=== PATIENT | male | born 1930 | race Caucasian/White ===

== ENCOUNTER 2016-11-16 10:01 | Observation (INO) | payer MEDICARE, OTHER ==
[~2016-11-16] VITALS: Ht 175.3 cm; Wt 71.2 kg
[~2016-11-16 10:01] MED LIST: ALEVE220 MG PO; BAYER CHEWABLE81 MG PO; COLACE100 MG PO; COZAAR100 MG PO; K-DUR20 MEQ PO; LEVAQUIN500 MG PO; ONDANSETRON4 MG/2 M3 PO; PACERONE200 MG PO; PRAVACHOL40 MG PO; PRILOSEC20 MG PO; PROVENTIL/2.5 MG/3 M INH; SENNA8.6 MG PO; ULTRAM50 MG PO
[2016-11-16 10:51] LABS: BASOPHILS 0.5 % (0.0-2.0); HEMATOCRIT 39.4 % (42.0-54.0); HEMOGLOBIN 12.4 g/dL (13.5-17.5); IMMATURE GRANULOCYTES 0.3 % (0-5); LYMPHOCYTES 14.9 % (15-50); MCH 27.1 pg (26.0-34.0); MCHC 31.5 g/dL (31.0-37.0); MEAN PLATELET VOLUME 11.1 fL (7.4-10.4); MONOCYTES 8.4 % (2-11); NEUTROPHILS 70.9 % (40-80); PLATELET COUNT 135 10x3/uL (130-400); RBC 4.58 10x6/uL (4.20-6.10); RDW 14.3 % (11.5-14.5); WBC 7.7 10x3/uL (4.8-10.8)
[2016-11-16 11:12] LABS: ALBUMIN 3.6 g/dL (3.4-5.0); ALKALINE PHOSPHATASE 90 U/L (46-116); ALT (SGPT) 18 U/L (10-68); AMYLASE - SERUM 105 U/L (25-115); BILIRUBIN - TOTAL 0.41 mg/dL (0.2-1.3); CALC OSMOLALITY 301 mosm/kg (275-300); CALCIUM 8.8 mg/dL (8.5-10.1); CARBON DIOXIDE 24.4 mmol/L (21.0-32.0); CHLORIDE - SERUM 110 mmol/L (98-107); CREATINE KINASE 61 UL (21-232); CREATININE - SERUM 1.9 mg/dL (0.6-1.3); GLUCOSE 129 mg/dL (74-106); LIPASE 354 U/L (73-393); POTASSIUM - SERUM 4.2 mmol/L (3.5-5.1); SODIUM 146 mmol/L (136-145); UREA NITROGEN 39 mg/dL (7-18); eGFR NON AFRICAN AMERICAN 36 mL/min (90-120)
[2016-11-16 11:13] LABS: PROTEIN - SERUM 3.8 g/dL (6.4-8.2); TROPONIN-I < 0.017 ng/mL (0.000-0.060)
[2016-11-16 11:57] LABS: CKMB 1.3 U/L (0.0-3.6)
--- NOTE | 2016-11-16 14:01 | NUR ---
TRANSFER FROM ER BY STRETCHER. OREINTED TO ROOM. CALL LIGHT IN REACH. WILL CONT. PLAN OF CARE.
[2016-11-16] MEDS ORDERED: ARICEPT10 MG PO (14:33)
[2016-11-16] MEDS ORDERED: NAPROXEN SODIU220 M1 PO (14:35)
[2016-11-16 14:47] VITALS: BP 182/84; BMI 23.2
[2016-11-16 16:00] VITALS: BP 186/74
[2016-11-16 16:55] LABS: CREATINE KINASE 65 UL (21-232)
[2016-11-16 16:58] LABS: TROPONIN-I < 0.017 ng/mL (0.000-0.060)
--- NOTE | 2016-11-16 19:38 | NUR ---
RESUMED CARE OF PT, LYING IN BED RESPIRATIONS EVEN AND UNLABORED ON ROOM AIR. PLAN OF CARE DISCUSSED. 76 SR WITH PACS. LEFT HAND SALINE LOCKED. BED ALARM PLACED. CALL LIGHT IN REACH. WILL CONTINUE TO MONITOR. SEE NURSE ASSESSMENT.
[2016-11-16 20:00] VITALS: BP 126/50
[2016-11-17] VITALS: BP 137/87
[2016-11-17 00:03] LABS: CKMB 0.9 U/L (0.0-3.6); CREATINE KINASE 53 UL (21-232); TROPONIN-I < 0.017 ng/mL (0.000-0.060)
[2016-11-17 04:00] VITALS: BP 107/83
[2016-11-17 05:30] LABS: BASOPHILS 0.4 % (0.0-2.0); EOSINOPHILS 5.1 % (0-7); HEMATOCRIT 36.4 % (42.0-54.0); HEMOGLOBIN 11.5 g/dL (13.5-17.5); IMMATURE GRANULOCYTES 0.2 % (0-5); LYMPHOCYTES 15.6 % (15-50); MCHC 31.6 g/dL (31.0-37.0); MCV 85.4 fL (80.0-100.0); MONOCYTES 8.4 % (2-11); NEUTROPHILS 70.3 % (40-80); PLATELET COUNT 139 10x3/uL (130-400); RBC 4.26 10x6/uL (4.20-6.10); RDW 14.3 % (11.5-14.5)
[2016-11-17 05:33] LABS: WBC 10.5 10x3/uL (4.8-10.8)
--- NOTE | 2016-11-17 06:28 | NUR ---
NO CHANGES FROM PREVIOUS ASSESSMENT, CALL LIGHT IN REACH. REMAINS NPO, AWAITING CARDIOLOGY. FUNMI ALARM ON.
[2016-11-17 06:38] LABS: ANION GAP 11.8 mmol/L (8-16); CALCIUM 8.7 mg/dL (8.5-10.1); CARBON DIOXIDE 26.1 mmol/L (21.0-32.0); CREATININE - SERUM 1.5 mg/dL (0.6-1.3)
[2016-11-17 06:39] LABS: POTASSIUM - SERUM 4.9 mmol/L (3.5-5.1)
[2016-11-17 08:43] VITALS: BP 179/65
[2016-11-17 11:07] LABS: APPEARANCE CLEAR (CLEAR); BILIRUBIN NEGATIVE (NEGATIVE); COLOR YELLOW (YELLOW); GLUCOSE NEGATIVE (NEGATIVE); KETONE NEGATIVE (NEGATIVE); LEUKOCYTE ESTERASE NEGATIVE (NEGATIVE); NITRITE NEGATIVE (NEGATIVE); PROTEIN NEGATIVE (NEGATIVE); UROBILINOGEN NORMAL (NORMAL)
[2016-11-17 12:16] VITALS: Ht 175.3 cm; Wt 71.2 kg
--- NOTE | 2016-11-17 12:40 | HP ---
PATIENT: ROMA RAMIREZ MEDICAL RECORD: [id number] ACCOUNT: [id number] LOCATION:[facility].2119 : [birth year] ADMISSION DATE: 11/16/16 HISTORY AND PHYSICAL EXAMINATION HISTORY OF PRESENT ILLNESS: An 86-year-old gentleman with a history of coronary artery disease. He has a history of dementia. Reports a 2-day history of really epigastric pain, worse with eating more solids and liquids, does report some weight loss, some nausea. Moreover, the family report does stay fairly active without anginal type symptomatology. We are asked to see him concerning his cardiovascular status. PAST MEDICAL HISTORY: 1. ____ history of coronary artery disease. 2. Dementia. 3. Hypertension. 4. Osteoarthritis. 5. Gastroesophageal reflux disease, hiatal hernia. ALLERGIES: None known. MEDICATIONS: Include Aricept 10 every day, losartan 100 every day, pravastatin 40 every day, aspirin 81 every day, Prilosec 20 every day, Zofran 4 q.6 hours p.r.n. SOCIAL HISTORY: Lives here in [place], retired from [employer]. He is nonsmoker. He has difficulty ADLs from a dementia standpoint. Physically, again is quite healthy. PHYSICAL EXAMINATION: GENERAL: Pleasant gentleman in no acute distress. Does recognize me. VITAL SIGNS: Blood pressure 107/83, pulse 65 and regular. HEENT: Normocephalic, atraumatic. NECK: No JVD or bruit. HEART: Regular. LUNGS: [place] clear. ABDOMEN: Soft, nontender. EXTREMITIES: Pulse 2+. No edema. DIAGNOSTIC DATA: ECG without acute change. IMPRESSION: Somewhat atypical pain. Cardiac enzymes negative times 3. ECG without acute changes. We would check echocardiography study. No contraindication to scope and/or discharge from my standpoint. TRANSINT:[id number] Voice Confirmation ID: [id number] DOCUMENT ID: [id number] HISTORY AND PHYSICAL [id number] ROMA RAMIREZ EARNESTINE WILSON MD at 1240 CC: [id number] DICTATION DATE: 11/17/16 0844 SOYBEAN GROWER: 11/17/16 1037 [place] [address]
[2016-11-17 13:14] VITALS: BP 133/53
[2016-11-17 17:16] VITALS: BP 153/55
--- NOTE | 2016-11-17 19:00 | NUR ---
INITIAL ROUNDS MADE. PT SITTING UP IN BED WATCHING TV. DENIES NEEDS OR C/O AT THIS TIME. CALL LIGHT IN REACH. WILL CONT TO MONITOR.
[2016-11-17 20:00] VITALS: BP 145/70; BP 172/89
--- NOTE | 2016-11-18 00:27 | NUR ---
GARDEN CONSULTANT AT BEDSIDE FOR VS. NEEDS ADDRESSED AT THIS TIME. CALL LIGHT IN REACH. WILL CONT TO MONITOR.
[2016-11-18 00:36] VITALS: BP 155/68
[2016-11-18 04:59] VITALS: BP 116/65
[2016-11-18 05:36] LABS: BASOPHILS 0.5 % (0.0-2.0); EOSINOPHILS 7.3 % (0-7); HEMATOCRIT 38.5 % (42.0-54.0); HEMOGLOBIN 11.9 g/dL (13.5-17.5); IMMATURE GRANULOCYTES 0.2 % (0-5); LYMPHOCYTES 19.9 % (15-50); MCH 26.5 pg (26.0-34.0); MCHC 30.9 g/dL (31.0-37.0); MCV 85.7 fL (80.0-100.0); MEAN PLATELET VOLUME 11.9 fL (7.4-10.4); MONOCYTES 9.7 % (2-11); NEUTROPHILS 62.4 % (40-80); PLATELET COUNT 149 10x3/uL (130-400); RBC 4.49 10x6/uL (4.20-6.10); RDW 14.1 % (11.5-14.5); WBC 8.4 10x3/uL (4.8-10.8)
[2016-11-18 05:43] LABS: ANION GAP 9.6 mmol/L (8-16); CALCIUM 8.4 mg/dL (8.5-10.1); CREATININE - SERUM 1.7 mg/dL (0.6-1.3); POTASSIUM - SERUM 4.6 mmol/L (3.5-5.1)
--- NOTE | 2016-11-18 06:34 | NUR ---
SITTING UP IN BED WATCHING TV. NO NEEDS OR C/O VOICED AT THIS TIME. WILL CONT TO MONITOR.
--- NOTE | 2016-11-18 07:16 | NUR ---
ASSESSMENT COMPLETED. TELEMERTY SHOWS SR WITH PACS.O2 AT 2 L/M PER NC. PT HAS A FUNMI ALARM. LEFT HAND SL. CONFUSED AT TIMES
[2016-11-18 08:14] VITALS: BP 158/53
--- NOTE | 2016-11-18 10:34 | NUR ---
UP IN BEDSIDE CHAIR. NO NEEDS VOICED. CALL LIGHT IN REACH
[2016-11-18 11:39] VITALS: BP 145/50
--- NOTE | 2016-11-18 12:42 | NUR ---
UP IN BEDSIDE CHAIR. NO NEEDS VOICED. FAMILY AT BEDSIDE. WILL MONITOR
[2016-11-18] MEDS ORDERED: MIRALAX17 GM PO (14:38)
--- NOTE | 2016-11-18 16:13 | NUR ---
PT DISCHARGED. IV DCD WITH TIP INTACT. INSTRUCTIONS GIVEN TO PT AND FAMILY. TO PRIVATE CAR PER WHEELCHAIR
--- NOTE | 2016-11-18 19:03 | CN ---
PATIENT NAME:ROMA RAMIREZ MEDICAL RECORD: [id number] : [birth year] LOCATION:D. D.2119 ADMIT DATE: 11/16/16 ACCOUNT: [id number] CONSULTING PHYSICIAN: LEIF CURRIE MD REFERRING PHYSICIAN: VIRI HERNANDEZ MD DATE OF CONSULTATION: 11/17/2016 Gastrointestinal Consultation REFERRING PHYSICIAN: Viri Hernandez MD HISTORY OF PRESENT ILLNESS: The patient is an 86-year-old white male with history of underlying dementia as well as prostate cancer, who basically was admitted with some vague epigastric pain, nausea and vomiting. He is subsequently admitted for further evaluation. He is on aspirin and Aleve almost daily. He also has some chronic problems with reflux disease. He also has chronic constipation and takes Dulcolax suppository almost every other day. On chart review, it looks like I saw him in June 2010 for colonoscopy, which revealed mild sigmoid diverticulosis and some internal hemorrhoids and that was about it. At that time, he reported chronic reflux symptoms as well, and has all been on PPIs before. PAST MEDICAL HISTORY: As above. PAST SURGICAL HISTORY: Remarkable for appendectomy and CABG. ALLERGIES: No known drug allergies. HOME MEDICATIONS: Include aspirin, Aleve, Aricept, Colace, Dulcolax suppositories, omeprazole, Cozaar, pravastatin and Zofran p.r.n. Looks like he has been on amiodarone in the past, but does not look like right now. FAMILY HISTORY: Negative for GI disease. SOCIAL HISTORY: The patient is a nonsmoker, nondrinker. REVIEW OF SYSTEMS: Noncontributory other than HPI. PHYSICAL EXAMINATION: GENERAL: Reveals a pleasant elderly white male in no acute distress. VITAL SIGNS: Stable, afebrile. CHEST: Clear. HEART: Regular rate and rhythm. ABDOMEN: Soft, nontender. EXTREMITIES: No edema. LABORATORY DATA: Reveals normal electrolytes, BUN 39, creatinine 1.9. Liver enzymes are normal. White count is normal 7000, hematocrit 39, MCV of 86, platelet count 135,000. Cardiac enzymes are negative. Chest x-ray is negative. IMPRESSION: 1. Acute epigastric pain with nausea and vomiting of unclear etiology, but CONSULT REPORT [id number] ROMA RAMIREZ basically resolved at present. It is completely nontender and was able to eat a regular diet tonight. I suspect is due to NSAID-induced gastropathy versus obstipation versus gallbladder disease. 2. History of chronic constipation. 3. History of mild sigmoid diverticulosis. 4. History coronary artery disease, status post coronary artery bypass graft. 5. Dementia. RECOMMENDATION: 1. Continue his PPI rather it be Protonix 40 mg b.i.d., omeprazole 40 mg daily. 2. Discontinue Naprosyn/Aleve and his aspirin. I probably do this indefinitely. 3. Check KUB, look for obstipation. I probably would start him on some MiraLax daily as well. 4. Ultrasound of the gallbladder. 5. Probably okay for discharge to home in the morning. We will hold off on any endoscopy at this age. She is pain free and much improved. TRANSINT:[id number] Voice Confirmation ID: [id number] DOCUMENT ID: [id number] LEIF CURRIE MD at 1903 CC: VIRI HERNANDEZ MD [id number] DICTATION DATE: 11/17/161935 PUBLIC HEALTH TRAINING ASSISTANT: 11/18/16 0231 DIS IN 11/18/16 [facility] [address] [place] [address]
== END 2016-11-18 16:18 | disposition home or self-care (01) ==
LOC: D.ER 10:01 → OBSVTIME 12:42 → D.M2 12:42
PROVIDERS: Emergency Medicine; Family Medicine; ADMIT Emergency Medicine
DX: R10.13 Epigastric pain (principal); R07.89 Other chest pain; I10 Essential (primary) hypertension; I25.10 Atherosclerotic heart disease of native coronary artery without angina pectoris; Z95.1 Presence of aortocoronary bypass graft; N17.9 Acute kidney failure, unspecified; K21.9 Gastro-esophageal reflux disease without esophagitis; K59.09 Other constipation; E78.5 Hyperlipidemia, unspecified; K57.90 Diverticulosis of intestine, part unspecified, without perforation or abscess without bleeding; Z85.46 Personal history of malignant neoplasm of prostate

== ENCOUNTER → 2017-04-13 14:59 | Outpatient (CLI) | payer MEDICARE, OTHER ==
[2016-11-17 12:16] VITALS: BMI 23.2
[~2017-04-13 14:59] MED LIST changes: +ARICEPT10 MG PO; +MIRALAX17 GM PO; +NAPROXEN SODIU220 M1 PO
== END | disposition home or self-care (01) ==
LOC: D.US 14:59
DX: I65.23 Occlusion and stenosis of bilateral carotid arteries (principal)

== ENCOUNTER 2017-10-28 05:10 | Day surgery (SDC) | payer MEDICARE, OTHER ==
[2016-11-17 12:16] VITALS: Ht 175.3 cm; Wt 71.7 kg
[~2017-10-28] VITALS: Ht 175.3 cm; Wt 71.7 kg
--- NOTE | ~2017-10-28 | OP ---
PATIENT NAME: ROMA RAMIREZ MEDICAL RECORD: [id number] :[birth year] LOCATION:D.OPS ADMISSION DATE: SURGEON: JORGE A ENGLE MD DATE OF OPERATION: 10/28/2017 SURGEON: Jorge A Engle MD DIESEL ELECTRICIAN: SARA Cain CRNA. PREOPERATIVE DIAGNOSIS: Urge urinary incontinence. PROCEDURES: Cystoscopy and intravesical Botox injection 100 units. FINDINGS: Nonobstructive prostate. Single ureteral orifices bilaterally. No bladder tumors. Multiple bladder diverticula. BLOOD LOSS: None. CLINICAL HISTORY: This is an 87-year-old male with a complaint of urge urinary incontinence for the past 2-3 years. He has to use 4-5 pads per day. He has been tried on Flomax and oxybutynin, which have not been helpful. He has nocturia times 4-5 and he has daytime urge incontinence. When we checked his postvoid residual, it was 19 mL. He has a history of prostate cancer treated with radioactive seeds and then formal treatments by Dr. Arthur. His last PSA was in 2014 and it was 0.01 at that time. He comes today to have cystoscopy and intravesical Botox injection performed. 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 DESCRIPTION OF PROCEDURE: The patient was given IV sedation. He was then placed in the dorsal lithotomy position and prepped and draped. A 22.5-[place] cystoscope with 30-degree lens was used for visualization. There were no penile urethral strictures. Prostatic lateral lobes were nonobstructive. The bladder neck was somewhat elevated; however. Going into the bladder, there were single ureteral orifices bilaterally. No bladder tumors were seen. There were multiple bladder diverticula, but the bladder itself was not heavily trabeculated. In 10 different locations, we injected 1 cc of the Botox solution. Each cc has 10 units of Botox dissolved in it. We avoided the ureteral orifices and the trigone. Once all injections were done, the bladder was emptied through the scope. The patient was then brought back to the preoperative holding area. I will see him in followup in 2 weeks' time. TRANSINT:[id number] Voice Confirmation ID: [id number] DOCUMENT ID: [id number] JORGE A ENGLE MD at 1237 CC: [id number] DICTATION DATE: 10/28/17 1151 FEED ADVISER: 10/28/17 1223 DEP SDC 10/28/17 [place] [id number] [place] [id number]
[~2017-10-28 05:10] MED LIST changes: +MELATONIN5 MG PO; +NORVASC5 MG PO; +ZOLOFT50 MG PO
[2017-10-28 07:13] LABS: BASOPHILS 0.7 % (0-2); HEMATOCRIT 32.9 % (42.0-54.0); HEMOGLOBIN 10.2 g/dL (13.5-17.5); IMMATURE GRANULOCYTES 0.1 % (0-5); MCH 24.2 pg (26.0-34.0); MEAN PLATELET VOLUME 11.4 fL (7.4-10.4); MONOCYTES 11.2 % (2-11); RBC 4.22 10x6/uL (4.20-6.10); RDW 15.5 % (11.5-14.5); WBC 8.7 10x3/uL (4.8-10.8)
[2017-10-28 07:24] LABS: PLATELET COUNT 187 10x3/uL (130-400)
[2017-10-28 07:26] LABS: APTT 32.1 SECONDS (22.8-39.4); CALCIUM 8.9 mg/dL (8.5-10.1); CARBON DIOXIDE 28.1 mmol/L (21.0-32.0); CREATININE - SERUM 1.8 mg/dL (0.6-1.3); INR 1.06 (0.85-1.17); POTASSIUM - SERUM 4.1 mmol/L (3.5-5.1); PROTIME 13.4 SECONDS (11.6-15.0)
== END 2017-10-28 14:05 | disposition home or self-care (01) ==
LOC: D.OPS 05:10 → D.PAN 08:15 → D.OPS 14:05
PROVIDERS: Anesthesiology
DX: N39.41 Urge incontinence (principal); I25.10 Atherosclerotic heart disease of native coronary artery without angina pectoris; I10 Essential (primary) hypertension; Z95.1 Presence of aortocoronary bypass graft; Z01.812 Encounter for preprocedural laboratory examination

== ENCOUNTER 2017-11-28 09:04 | Inpatient (IN) | payer MEDICARE, OTHER ==
[~2017-11-28] VITALS: Ht 175.3 cm; Wt 71.2 kg
[2017-11-28 09:30] LABS: BASOPHILS 0.9 % (0-2); EOSINOPHILS 5.2 % (0-7); HEMATOCRIT 36.4 % (42.0-54.0); HEMOGLOBIN 11.3 g/dL (13.5-17.5); IMMATURE GRANULOCYTES 0.2 % (0-5); LYMPHOCYTES 21.2 % (15-50); MCH 24.6 pg (26.0-34.0); MCV 79.1 fL (80.0-100.0); MEAN PLATELET VOLUME 10.8 fL (7.4-10.4); MONOCYTES 9.8 % (2-11); NEUTROPHILS 62.7 % (40-80); PLATELET COUNT 194 10x3/uL (130-400); RDW 15.6 % (11.5-14.5); WBC 9.2 10x3/uL (4.8-10.8)
[2017-11-28 09:42] LABS: ALBUMIN 3.7 g/dL (3.4-5.0); ANION GAP 13.5 mmol/L (8-16); BILIRUBIN - TOTAL 0.37 mg/dL (0.2-1.3); CALCIUM 9.1 mg/dL (8.5-10.1); CREATININE - SERUM 1.8 mg/dL (0.6-1.3); POTASSIUM - SERUM 3.5 mmol/L (3.5-5.1)
[2017-11-28 10:30] LABS: APPEARANCE CLEAR (CLEAR); BILIRUBIN NEGATIVE (NEGATIVE); COLOR YELLOW (YELLOW); GLUCOSE NEGATIVE (NEGATIVE); KETONE NEGATIVE (NEGATIVE); NITRITE NEGATIVE (NEGATIVE); PROTEIN TRACE mg/dL (NEGATIVE); SPECIFIC GRAVITY 1.015 (1.005-1.020); UROBILINOGEN NORMAL (NORMAL)
[2017-11-28 10:34] LABS: WHITE CELLS - URINE 0-5 /hpf (0-5)
[2017-11-28 10:35] LABS: BACTERIA FEW /hpf (NONE SEEN); HYALINE CAST 0-5 /lpf (NONE SEEN); MUCUS <1+ /lpf (NONE SEEN)
[2017-11-28 13:56] VITALS: BP 166/75; BMI 22.2
[2017-11-28 15:21] LABS: % SATURATION 9 % (15-55); IRON 41 ug/dl (35-150); TOTAL IRON BIND CAPACITY 412 ug/dl (260-445); UNSAT IRON BIND CAPACITY 371 ug/dl (150-375)
[2017-11-28 20:00] VITALS: BP 143/55
[2017-11-29 02:30] VITALS: BP 157/66
[2017-11-29 05:00] VITALS: BP 134/64
[2017-11-29 05:58] LABS: BASOPHILS 0.2 % (0-2); EOSINOPHILS 0.1 % (0-7); HEMATOCRIT 35.2 % (42.0-54.0); HEMOGLOBIN 10.7 g/dL (13.5-17.5); IMMATURE GRANULOCYTES 0.2 % (0-5); LYMPHOCYTES 9.1 % (15-50); MCH 24.2 pg (26.0-34.0); MCHC 30.4 g/dL (31.0-37.0); MCV 79.6 fL (80.0-100.0); MEAN PLATELET VOLUME 11.2 fL (7.4-10.4); MONOCYTES 9.4 % (2-11); PLATELET COUNT 202 10x3/uL (130-400); RBC 4.42 10x6/uL (4.20-6.10); RDW 15.7 % (11.5-14.5); WBC 12.8 10x3/uL (4.8-10.8)
[2017-11-29 06:07] LABS: ANION GAP 13.9 mmol/L (8-16); CREATININE - SERUM 1.7 mg/dL (0.6-1.3); POTASSIUM - SERUM 3.9 mmol/L (3.5-5.1)
[2017-11-29 09:07] VITALS: BP 153/55
[2017-11-29 12:51] VITALS: BP 145/54
[2017-11-29 16:41] VITALS: BP 136/47
[2017-11-29 21:57] VITALS: BP 142/58
[2017-11-30 01:08] VITALS: BP 140/50
[2017-11-30 05:54] VITALS: BP 182/52
[2017-11-30 06:21] LABS: BASOPHILS 0.5 % (0-2); EOSINOPHILS 4.1 % (0-7); HEMATOCRIT 31.5 % (42.0-54.0); HEMOGLOBIN 9.8 g/dL (13.5-17.5); IMMATURE GRANULOCYTES 0.2 % (0-5); LYMPHOCYTES 18.8 % (15-50); MCH 24.7 pg (26.0-34.0); MCHC 31.1 g/dL (31.0-37.0); MCV 79.5 fL (80.0-100.0); MEAN PLATELET VOLUME 11.3 fL (7.4-10.4); MONOCYTES 13.6 % (2-11); NEUTROPHILS 62.8 % (40-80); PLATELET COUNT 175 10x3/uL (130-400); RBC 3.96 10x6/uL (4.20-6.10)
[2017-11-30 06:29] LABS: WBC 9.3 10x3/uL (4.8-10.8)
[2017-11-30 06:50] LABS: ANION GAP 12.3 mmol/L (8-16); CALCIUM 8.4 mg/dL (8.5-10.1); CREATININE - SERUM 1.6 mg/dL (0.6-1.3)
[2017-11-30 06:57] LABS: POTASSIUM - SERUM 3.3 mmol/L (3.5-5.1)
[2017-11-30 09:18] VITALS: BP 160/63
[2017-11-30 11:24] VITALS: BP 130/70
[2017-11-30 13:42] VITALS: Ht 175.3 cm; Wt 71.2 kg
[2017-11-30 16:15] VITALS: BP 136/81
[2017-11-30 19:00] VITALS: BP 168/60
[2017-12-01] VITALS: BP 144/49
[2017-12-01 04:00] VITALS: BP 92/44
[2017-12-01 05:31] LABS: BASOPHILS 0.7 % (0-2); EOSINOPHILS 4.8 % (0-7); HEMATOCRIT 29.9 % (42.0-54.0); HEMOGLOBIN 9.3 g/dL (13.5-17.5); IMMATURE GRANULOCYTES 0.1 % (0-5); LYMPHOCYTES 20.1 % (15-50); MCH 24.3 pg (26.0-34.0); MCHC 31.1 g/dL (31.0-37.0); MCV 78.3 fL (80.0-100.0); MEAN PLATELET VOLUME 11.4 fL (7.4-10.4); MONOCYTES 14.8 % (2-11); NEUTROPHILS 59.5 % (40-80); PLATELET COUNT 165 10x3/uL (130-400); RBC 3.82 10x6/uL (4.20-6.10); RDW 15.9 % (11.5-14.5); WBC 9.4 10x3/uL (4.8-10.8)
[2017-12-01 05:48] LABS: ANION GAP 12.6 mmol/L (8-16); CALCIUM 8.7 mg/dL (8.5-10.1); CARBON DIOXIDE 26.3 mmol/L (21.0-32.0); CREATININE - SERUM 1.6 mg/dL (0.6-1.3)
[2017-12-01 05:56] LABS: POTASSIUM - SERUM 3.9 mmol/L (3.5-5.1)
[2017-12-01 08:19] LABS: FOLATE (FOLIC ACID) - SERUM >20.0 ng/mL (>3.0)
[2017-12-01 10:29] VITALS: BP 148/42
[2017-12-01 11:42] VITALS: BP 94/52
[2017-12-01] MEDS ORDERED: FLORAJEN3 CAPS460 MG PO (12:45)
[2017-12-01] MEDS ORDERED: Levaquin PO (12:45)
[2017-12-01 15:46] VITALS: BP 137/44
[2017-12-01 20:00] VITALS: BP 185/66
[2017-12-02] VITALS: BP 106/58
[2017-12-02 04:00] VITALS: BP 196/75
[2017-12-02 06:14] LABS: BASOPHILS 0.5 % (0-2); EOSINOPHILS 5.7 % (0-7); HEMOGLOBIN 9.7 g/dL (13.5-17.5); IMMATURE GRANULOCYTES 0.4 % (0-5); LYMPHOCYTES 19.5 % (15-50); MCH 24.4 pg (26.0-34.0); MCHC 31.3 g/dL (31.0-37.0); MCV 78.1 fL (80.0-100.0); MEAN PLATELET VOLUME 10.6 fL (7.4-10.4); MONOCYTES 13.1 % (2-11); NEUTROPHILS 60.8 % (40-80); PLATELET COUNT 167 10x3/uL (130-400); RBC 3.97 10x6/uL (4.20-6.10); RDW 15.8 % (11.5-14.5); WBC 9.9 10x3/uL (4.8-10.8)
[2017-12-02 06:37] LABS: ANION GAP 12.9 mmol/L (8-16); CALCIUM 8.7 mg/dL (8.5-10.1); CARBON DIOXIDE 26.7 mmol/L (21.0-32.0); CREATININE - SERUM 1.5 mg/dL (0.6-1.3); POTASSIUM - SERUM 3.6 mmol/L (3.5-5.1)
[2017-12-02 09:10] VITALS: BP 167/59
[2017-12-02 12:00] VITALS: BP 132/56
[2017-12-02 16:37] VITALS: BP 141/59
[2017-12-02 19:00] VITALS: BP 161/51
[2017-12-03 04:00] VITALS: BP 207/73
[2017-12-03 05:40] LABS: BASOPHILS 0.5 % (0-2); HEMATOCRIT 32.8 % (42.0-54.0); HEMOGLOBIN 10.4 g/dL (13.5-17.5); IMMATURE GRANULOCYTES 0.4 % (0-5); LYMPHOCYTES 15.4 % (15-50); MCH 24.8 pg (26.0-34.0); MCHC 31.7 g/dL (31.0-37.0); MCV 78.1 fL (80.0-100.0); MEAN PLATELET VOLUME 10.9 fL (7.4-10.4); MONOCYTES 13.3 % (2-11); NEUTROPHILS 65.4 % (40-80); PLATELET COUNT 176 10x3/uL (130-400); WBC 11.1 10x3/uL (4.8-10.8)
[2017-12-03 06:02] LABS: ANION GAP 12.8 mmol/L (8-16); CALCIUM 8.7 mg/dL (8.5-10.1); CARBON DIOXIDE 25.9 mmol/L (21.0-32.0); CREATININE - SERUM 1.5 mg/dL (0.6-1.3); POTASSIUM - SERUM 3.7 mmol/L (3.5-5.1)
[2017-12-03 08:44] VITALS: BP 197/64
[2017-12-03 11:50] VITALS: BP 115/55
[2017-12-03 16:44] VITALS: BP 147/55
[2017-12-03 21:06] VITALS: BP 171/65
[2017-12-04 01:46] VITALS: BP 151/51
[2017-12-04 05:40] VITALS: BP 176/69
[2017-12-04 08:33] VITALS: BP 157/68
[2017-12-04 11:41] VITALS: BP 113/44
== END 2017-12-04 14:07 | DRG 682 ==
LOC: D.ER 09:04 → D.M2 11:04 → D.EDHOLD 11:04 → OBSVTIME 11:05 → D.M2 11:20 → D.SDCHOLD 11-30 15:21 → D.M2 12-04 14:07
PROVIDERS: Emergency Medicine; Internal Medicine Nephrology
DX: N17.9 Acute kidney failure, unspecified (principal); S72.001A Fracture of unspecified part of neck of right femur, initial encounter for closed fracture; G91.2 (Idiopathic) normal pressure hydrocephalus; N39.0 Urinary tract infection, site not specified; J98.11 Atelectasis; D50.9 Iron deficiency anemia, unspecified; R54 Age-related physical debility; G93.89 Other specified disorders of brain; I25.10 Atherosclerotic heart disease of native coronary artery without angina pectoris; E78.5 Hyperlipidemia, unspecified; I10 Essential (primary) hypertension; F03.90 Unspecified dementia, unspecified severity, without behavioral disturbance, psychotic disturbance, mood disturbance, and anxiety; R40.2363 Coma scale, best motor response, obeys commands, at hospital admission; R40.2133 Coma scale, eyes open, to sound, at hospital admission; R40.2243 Coma scale, best verbal response, confused conversation, at hospital admission; W19.XXXA Unspecified fall, initial encounter; S00.83XA Contusion of other part of head, initial encounter; S50.02XA Contusion of left elbow, initial encounter; Z91.81 History of falling; Z95.1 Presence of aortocoronary bypass graft; Z85.46 Personal history of malignant neoplasm of prostate

== ENCOUNTER → 2018-01-08 12:06 | Outpatient (CLI) | payer MEDICARE, OTHER ==
[2017-11-30 13:42] VITALS: BMI 22.6
[~2018-01-08 12:06] MED LIST changes: +FLORAJEN3 CAPS460 MG PO; +Levaquin PO
== END | disposition home or self-care (01) ==
LOC: D.CT 12:06
DX: I71.4 Abdominal aortic aneurysm, without rupture (principal)

== ENCOUNTER → 2018-05-04 08:47 | Outpatient (CLI) | payer MEDICARE, OTHER ==
[2017-11-30 13:42] VITALS: BMI 22.6
== END | disposition home or self-care (01) ==
LOC: D.US 08:47
DX: I71.4 Abdominal aortic aneurysm, without rupture (principal); I65.23 Occlusion and stenosis of bilateral carotid arteries